=== PATIENT | male | born 1970 | race Caucasian/White ===

== ENCOUNTER 2017-07-03 11:10 | Emergency (ER) | payer OTHER ==
[~2017-07-03] VITALS: Ht 172.7 cm; Wt 62.7 kg
[~2017-07-03 11:10] MED LIST: CLON.1 PO; PALI234D IM
[2017-07-03 11:38] LABS: BASOPHILS # (AUTO) 0.04 K/uL (0.00-0.20); BASOPHILS % (AUTO) 0.7 % (0.0-2.0); EOSINOPHILS # (AUTO) 0.16 K/uL (0.00-0.70); EOSINOPHILS % (AUTO) 2.66 % (1.0-6.0); HEMATOCRIT 36.9 % (41-53); HEMOGLOBIN 12.1 g/dL (13.5-17.5); LYMPHOCYTES # (AUTO) 1.9 K/uL (1.0-4.8); LYMPHOCYTES % (AUTO) 32.1 % (22.0-44.0); MEAN CORPUSCULAR HGB CONC 32.7 G/dL (31.0-37.0); MEAN CORPUSCULAR VOLUME 86 fL (80-100); MONOCYTES # (AUTO) 0.4 K/uL (0.1-1.0); MONOCYTES % (AUTO) 6.6 % (2.0-9.0); NEUTROPHILS # (AUTO) 3.4 K/uL (1.8-7.7); PLATELET COUNT (AUTO) 311 K/uL (150-450); RED BLOOD CELL COUNT(AUTO) 4.31 MIL/uL (4.50-5.90); RED CELL DISTRIBUTION WIDTH 16.3 % (11.5-14.5); WHITE BLOOD COUNT (AUTO) 5.8 K/uL (4.5-11.0)
[2017-07-03 12:10] LABS: ANION GAP 10 mmol/L (8-16); CALCIUM, TOTAL 8.7 mg/dL (8.8-10.5); CARBON DIOXIDE 27 mmol/L (22-29); CHLORIDE 102 mmol/L (98-107); CREATININE 1.12 mg/dL (0.60-1.30); GLOMERULAR FILTR. RATE CALC > 60 mL/min (>60); POTASSIUM 4.1 mmol/L (3.5-5.1); SODIUM SERUM 139 mmol/L (136-145); UREA NITROGEN, BLOOD 10 mg/dL (7-18)
[2017-07-03 12:15] LABS: ALANINE AMINOTRANSFERASE 20 U/L (12-78); ALBUMIN 3.4 g/dL (3.4-5.0); ASPARTATE AMINOTRANSFERASE 16 U/L (15-37); BILIRUBIN,TOTAL 0.4 mg/dL (0.1-1.0); TOTAL PROTEIN, SERUM 7.6 g/dL (6.4-8.2)
[2017-07-03 13:32] VITALS: BP 133/87
== END 2017-07-03 15:20 | disposition home or self-care (01) ==
LOC: EMS 11:12 → EEVIPCON 11:12 → EMS 15:20
DX: Z00.8 Encounter for other general examination (principal); F15.10 Other stimulant abuse, uncomplicated; J45.909 Unspecified asthma, uncomplicated; I10 Essential (primary) hypertension; F20.9 Schizophrenia, unspecified; F17.210 Nicotine dependence, cigarettes, uncomplicated
CPT/HCPCS: 36415; 80053; 80307; 85025; 99285; G0480

== ENCOUNTER 2017-10-18 11:14 | Inpatient (IN) | payer OTHER, MEDICAID ==
[~2017-10-18] VITALS: Ht 162.6 cm; Wt 59.3 kg
[~2017-10-18 11:14] MED LIST changes: +CLON-570 PO; -CLON.1 PO
[2017-10-18 11:21] VITALS: BP 125/93
[2017-10-18] MEDS ORDERED: ZOLPIDEM TARTRATE 10 MG TABLET PO PRN (11:30)
[2017-10-18] MEDS ORDERED: LORazepam 2 MG TABLET PO PRN (11:30)
[2017-10-18] MEDS ORDERED: HALOPERIDOL 5 MG TABLET PO PRN (11:30)
[2017-10-18 12:08] VITALS: BP 133/86
[2017-10-18] MEDS ORDERED: INFLUENZA VIRUS VACCINE QVS 2017-18 (3YR+)/PF 60 MCG/0.5 ML SYRINGE IM ONE (12:45)
[2017-10-18] MEDS ORDERED: -PHARMACY VACCINE NOTE- MISC ONE (12:45)
[2017-10-18] MEDS ORDERED: CloNIDine HCL 0.1 MG TABLET PO SCH (17:00)
[2017-10-18 17:35] VITALS: BP 128/80
[2017-10-18] MEDS: BACITRACIN 28.4 GM OINTMENT TP SCH (17:39)
[2017-10-18] MEDS: CloNIDine HCL 0.1 MG TABLET PO SCH (17:39)
[2017-10-19 00:57] VITALS: BP 133/80
[2017-10-19 08:42] VITALS: BP 130/77
[2017-10-19] MEDS: BACITRACIN 28.4 GM OINTMENT TP SCH ×2 (09:00→16:59)
[2017-10-19] MEDS: CloNIDine HCL 0.1 MG TABLET PO SCH ×2 (09:00→16:59)
[2017-10-19 15:59] VITALS: BP 144/56
[2017-10-19 16:55] VITALS: BP 142/68
[2017-10-20 09:00] VITALS: BP 128/88
[2017-10-20] MEDS: CloNIDine HCL 0.1 MG TABLET PO SCH ×2 (09:11→16:53)
[2017-10-20] MEDS: BACITRACIN 28.4 GM OINTMENT TP SCH ×2 (09:11→16:53)
[2017-10-20] MEDS ORDERED: PALIPERIDONE PALMITATE 234 MG/1.5 ML SYRINGE IM SCH (16:00)
[2017-10-20 16:04] VITALS: BP 138/74
[2017-10-21 08:48] VITALS: BP 130/85
[2017-10-21] MEDS: BACITRACIN 28.4 GM OINTMENT TP SCH ×2 (10:25→16:12)
[2017-10-21] MEDS: CloNIDine HCL 0.1 MG TABLET PO SCH ×2 (10:25→16:11)
[2017-10-21 16:12] VITALS: BP 120/71
[2017-10-21] MEDS ORDERED: MAGNESIUM HYDROXIDE SUSPENSION 30 ML UDCUP PO PRN (19:00)
[2017-10-22 00:43] VITALS: BP 138/90
[2017-10-22 08:11] LABS: BASOPHILS % (AUTO) 0.9 % (0.0-2.0); EOSINOPHILS % (AUTO) 2.1 % (1.0-6.0); HEMATOCRIT 36.9 % (41-53); HEMOGLOBIN 12.4 g/dL (13.5-17.5); LYMPHOCYTES # (AUTO) 1.6 K/uL (1.0-4.8); MEAN CORPUSCULAR HEMOGLOBIN 28.8 pg (26.0-34.0); MEAN CORPUSCULAR HGB CONC 33.6 G/dL (31.0-37.0); MEAN CORPUSCULAR VOLUME 86 fL (80-100); MONOCYTES # (AUTO) 0.4 K/uL (0.1-1.0); NEUTROPHILS # (AUTO) 2.5 K/uL (1.8-7.7); PLATELET COUNT (AUTO) 321 K/uL (150-450); RED CELL DISTRIBUTION WIDTH 14.8 % (11.5-14.5)
[2017-10-22] MEDS: CloNIDine HCL 0.1 MG TABLET PO SCH ×2 (08:14→16:38)
[2017-10-22] MEDS: BACITRACIN 28.4 GM OINTMENT TP SCH ×2 (08:14→16:38)
[2017-10-22 08:22] LABS: HEMOGLOBIN A1C 5.4 % (4.5-6.2)
[2017-10-22 08:32] VITALS: BP 139/79
[2017-10-22 08:39] LABS: ALANINE AMINOTRANSFERASE 16 U/L (12-78); ALBUMIN 2.9 g/dL (3.4-5.0); ALKALINE PHOSPHATASE 62 U/L (46-116); ANION GAP 3 mmol/L (8-16); ASPARTATE AMINOTRANSFERASE 8 U/L (15-37); BILIRUBIN,TOTAL 0.2 mg/dL (0.1-1.0); CALCIUM, TOTAL 8.1 mg/dL (8.8-10.5); CARBON DIOXIDE 29 mmol/L (22-29); CHLORIDE 103 mmol/L (98-107); CHOL/HDL RATIO 2.5 (4.2-7.3); CHOLESTEROL 124 mg/dL (131-200); CREATININE 1.01 mg/dL (0.60-1.30); FREE T4 (FREE THYROXINE) 0.83 ng/dL (0.76-1.46); GLOMERULAR FILTR. RATE CALC > 60 mL/min (>60); GLUCOSE,RANDOM 89 mg/dL (70-110); HDL CHOLESTEROL 50 mg/dL (40-60); LDL CHOL (CALC.) 67 mg/dL (0-130); POTASSIUM 4.5 mmol/L (3.5-5.1); SODIUM SERUM 135 mmol/L (136-145); THYROID STIMULATING HORMONE 2.99 uIU/mL (0.36-3.74); TOTAL PROTEIN, SERUM 6.7 g/dL (6.4-8.2); TRIGLYCERIDES 37 mg/dL (15-150); UREA NITROGEN, BLOOD 17 mg/dL (7-18)
[2017-10-22 16:19] VITALS: BP 137/77
[2017-10-23 01:28] VITALS: BP 138/82
[2017-10-23 08:28] VITALS: BP 122/74
[2017-10-23] MEDS: BACITRACIN 28.4 GM OINTMENT TP SCH ×2 (08:46→16:40)
[2017-10-23] MEDS: CloNIDine HCL 0.1 MG TABLET PO SCH ×2 (08:46→16:40)
[2017-10-23 08:57] LABS: ALANINE AMINOTRANSFERASE 15 U/L (12-78); ALKALINE PHOSPHATASE 68 U/L (46-116); ANION GAP 6 mmol/L (8-16); ASPARTATE AMINOTRANSFERASE 8 U/L (15-37); BILIRUBIN,TOTAL 0.3 mg/dL (0.1-1.0); CARBON DIOXIDE 25 mmol/L (22-29); CHLORIDE 104 mmol/L (98-107); CREATININE 0.82 mg/dL (0.60-1.30); GLOMERULAR FILTR. RATE CALC > 60 mL/min (>60); GLUCOSE,RANDOM 85 mg/dL (70-110); POTASSIUM 4.7 mmol/L (3.5-5.1); SODIUM SERUM 135 mmol/L (136-145); TOTAL PROTEIN, SERUM 6.9 g/dL (6.4-8.2); UREA NITROGEN, BLOOD 14 mg/dL (7-18)
[2017-10-23 16:21] VITALS: BP 131/85
[2017-10-24] MEDS: CloNIDine HCL 0.1 MG TABLET PO SCH ×2 (08:15→16:18)
[2017-10-24] MEDS: BACITRACIN 28.4 GM OINTMENT TP SCH ×2 (08:16→16:18)
[2017-10-24 08:36] VITALS: BP 119/62
[2017-10-24 16:39] VITALS: BP 139/96
[2017-10-24 17:30] VITALS: BP 126/86
[2017-10-25 05:44] VITALS: BP 137/82
[2017-10-25] MEDS: CloNIDine HCL 0.1 MG TABLET PO SCH ×2 (08:20→16:36)
[2017-10-25] MEDS: BACITRACIN 28.4 GM OINTMENT TP SCH ×2 (08:20→16:36)
[2017-10-25 08:36] VITALS: BP 148/86
[2017-10-25 13:47] VITALS: BP 122/80
[2017-10-25 16:09] VITALS: BP 110/64
[2017-10-26 05:48] VITALS: BP 126/75
[2017-10-26 08:25] VITALS: BP 120/78
[2017-10-26] MEDS: CloNIDine HCL 0.1 MG TABLET PO SCH ×2 (08:26→16:13)
[2017-10-26] MEDS: BACITRACIN 28.4 GM OINTMENT TP SCH ×2 (08:26→16:13)
[2017-10-26 09:26] VITALS: BP 120/78
[2017-10-26 16:08] VITALS: BP 116/72
[2017-10-27 00:58] VITALS: BP 122/70
[2017-10-27] MEDS: CloNIDine HCL 0.1 MG TABLET PO SCH ×2 (08:12→16:30)
[2017-10-27] MEDS: BACITRACIN 28.4 GM OINTMENT TP SCH ×2 (08:12→16:30)
[2017-10-27 08:13] VITALS: BP_SYST 120
[2017-10-27 16:32] VITALS: BP 130/85
[2017-10-28 00:50] VITALS: BP 124/85
[2017-10-28] MEDS: BACITRACIN 28.4 GM OINTMENT TP SCH (08:09)
[2017-10-28] MEDS: CloNIDine HCL 0.1 MG TABLET PO SCH ×2 (08:09→16:15)
[2017-10-28 08:37] VITALS: BP 135/90
[2017-10-28 16:18] VITALS: BP 141/74
[2017-10-29 04:14] VITALS: BP 123/99
[2017-10-29] MEDS: CloNIDine HCL 0.1 MG TABLET PO SCH ×2 (08:28→16:34)
[2017-10-29 09:04] VITALS: BP 133/87
[2017-10-29 16:15] VITALS: BP 140/89
[2017-10-30 01:08] VITALS: BP 120/85
[2017-10-30 08:12] VITALS: BP 128/82
[2017-10-30] MEDS: CloNIDine HCL 0.1 MG TABLET PO SCH ×2 (08:35→16:36)
[2017-10-30 16:26] VITALS: BP 131/99
[2017-10-31 02:05] VITALS: BP 133/77
[2017-10-31] MEDS: CloNIDine HCL 0.1 MG TABLET PO SCH ×2 (08:21→16:07)
[2017-10-31 08:44] VITALS: BP 130/76
[2017-10-31 16:18] VITALS: BP 124/83
[2017-11-01 04:32] VITALS: BP 125/84
[2017-11-01] MEDS: CloNIDine HCL 0.1 MG TABLET PO SCH ×2 (08:21→16:42)
[2017-11-01 08:28] VITALS: BP 122/86
[2017-11-01 17:25] VITALS: BP 124/98
[2017-11-02 00:39] VITALS: BP 128/62
[2017-11-02] MEDS: CloNIDine HCL 0.1 MG TABLET PO SCH (08:19)
[2017-11-02 08:38] VITALS: BP 121/86
== END 2017-11-02 09:15 | disposition home or self-care (01) | DRG 885 ==
LOC: B2X 11:25
PROVIDERS: ADMIT Psychiatry & Neurology Psychiatry; ATTEND Psychiatry & Neurology Psychiatry
DX: F20.0 Paranoid schizophrenia (principal); Z91.19 Patient's noncompliance with other medical treatment and regimen; I10 Essential (primary) hypertension
CPT/HCPCS: 83036; 84439; 84443

== ENCOUNTER 2018-05-22 15:21 | Emergency (ER) | payer MEDICAID, MEDICARE, OTHER ==
[~2018-05-22] VITALS: Ht 154.9 cm; Wt 45.5 kg
[2018-05-22] MEDS ORDERED: LABETALOL HCL 5 MG/ML 20 ML VIAL IVP ONE (17:30)
[2018-05-22] MEDS ORDERED: MAGNESIUM SULFATE 2 GM, MVI, ADULT NO.1 WITH VIT K 10 ML, THIAMINE HCL 100 MG, FOLIC AC... IV ONE ×5 (17:30)
[2018-05-22 17:33] LABS: BASOPHILS % (AUTO) 1.1 % (0.0-2.0); HEMATOCRIT 38.5 % (41-53); HEMOGLOBIN 12.7 g/dL (13.5-17.5); LYMPHOCYTES # (AUTO) 1.8 K/uL (1.0-4.8); LYMPHOCYTES % (AUTO) 27.5 % (22.0-44.0); MEAN CORPUSCULAR HEMOGLOBIN 27.1 pg (26.0-34.0); MEAN CORPUSCULAR HGB CONC 33.1 G/dL (31.0-37.0); MEAN CORPUSCULAR VOLUME 82 fL (80-100); MONOCYTES # (AUTO) 0.5 K/uL (0.1-1.0); NEUTROPHILS # (AUTO) 4.1 K/uL (1.8-7.7); NEUTROPHILS % (AUTO) 61.4 % (40.0-70.0); PLATELET COUNT (AUTO) 412 K/uL (150-450); RED BLOOD CELL COUNT(AUTO) 4.69 MIL/uL (4.50-5.90); RED CELL DISTRIBUTION WIDTH 14.7 % (11.5-14.5)
[2018-05-22 17:42] LABS: ANION GAP 5 mmol/L (8-16); CALCIUM, TOTAL 8.5 mg/dL (8.8-10.5); CARBON DIOXIDE 29 mmol/L (22-29); CHLORIDE 100 mmol/L (98-107); CREATININE 0.81 mg/dL (0.60-1.30); GLOMERULAR FILTR. RATE CALC > 60 mL/min (>60); GLUCOSE,RANDOM 121 mg/dL (70-110); POTASSIUM 3.4 mmol/L (3.5-5.1); SODIUM SERUM 134 mmol/L (136-145); UREA NITROGEN, BLOOD 7 mg/dL (7-18)
[2018-05-22 17:47] LABS: ALANINE AMINOTRANSFERASE 16 U/L (12-78); ALBUMIN 3.4 g/dL (3.4-5.0); ALKALINE PHOSPHATASE 92 U/L (46-116); ASPARTATE AMINOTRANSFERASE 11 U/L (15-37); BILIRUBIN,TOTAL 0.3 mg/dL (0.1-1.0); TOTAL PROTEIN, SERUM 7.8 g/dL (6.4-8.2)
[2018-05-22] MEDS ORDERED: LORazepam 2 MG/ML VIAL IVP ONE (18:30)
[2018-05-22] MEDS ORDERED: CloNIDine HCL 0.1 MG TABLET PO ONE (19:45)
[2018-05-22] MEDS ORDERED: POTASSIUM CHLORIDE 20 MEQ ER TABLET PO ONE (19:45)
[2018-05-22 20:32] LABS: AMPHET/METH SCREEN,URINE POSITIVE (NEGATIVE); BARBITURATE SCREEN, URINE NEGATIVE (NEGATIVE); BENZODIAZEPINES SCREEN,URINE NEGATIVE (NEGATIVE); CANNABINOID SCREEN,URINE NEGATIVE (NEGATIVE); COCAINE SCREEN,URINE NEGATIVE (NEGATIVE); METHADONE SCREEN, URINE NEGATIVE (NEGATIVE); OPIATE SCREEN,URINE NEGATIVE (NEGATIVE)
[2018-05-22 20:33] LABS: PHENCYCLIDINE SCREEN,URINE NEGATIVE (NEGATIVE)
[2018-05-22 21:37] VITALS: BP 147/101
== END 2018-05-22 21:44 | disposition home or self-care (01) ==
LOC: EMS 15:23
DX: F10.239 Alcohol dependence with withdrawal, unspecified (principal); E86.0 Dehydration; R00.0 Tachycardia, unspecified; M79.661 Pain in right lower leg; J45.909 Unspecified asthma, uncomplicated; I10 Essential (primary) hypertension; F17.210 Nicotine dependence, cigarettes, uncomplicated; F19.90 Other psychoactive substance use, unspecified, uncomplicated; Z91.19 Patient's noncompliance with other medical treatment and regimen; Y90.0 Blood alcohol level of less than 20 mg/100 ml
CPT/HCPCS: 36415; 80053; 80307; 85025; 93005; 96365; 96375; 99285; G0480; J2060; J3411; J3475; J3490 ×3; J7030

== ENCOUNTER 2018-05-23 11:02 | Emergency (ER) | payer MEDICARE ==
[~2018-05-23] VITALS: Ht 167.6 cm; Wt 68.2 kg
[2018-05-23 13:36] VITALS: BP 137/92
== END 2018-05-23 14:30 | disposition home or self-care (01) ==
LOC: EMS 11:04
DX: F20.9 Schizophrenia, unspecified (principal); J45.909 Unspecified asthma, uncomplicated; I10 Essential (primary) hypertension; F17.210 Nicotine dependence, cigarettes, uncomplicated; F19.90 Other psychoactive substance use, unspecified, uncomplicated; Z59.0 Homelessness
CPT/HCPCS: 99283; 99284

== ENCOUNTER 2018-06-14 09:42 | Inpatient (IN) | payer MEDICARE, MEDICAID ==
[~2018-06-14] VITALS: Ht 160 cm; Wt 56.6 kg
[2018-06-14 11:50] LABS: BASOPHILS % (AUTO) 1.5 % (0.0-2.0); EOSINOPHILS % (AUTO) 3.1 % (1.0-6.0); HEMATOCRIT 39.5 % (41-53); HEMOGLOBIN 12.9 g/dL (13.5-17.5); LYMPHOCYTES # (AUTO) 1.7 K/uL (1.0-4.8); LYMPHOCYTES % (AUTO) 35.3 % (22.0-44.0); MEAN CORPUSCULAR HEMOGLOBIN 26.5 pg (26.0-34.0); MEAN CORPUSCULAR HGB CONC 32.7 G/dL (31.0-37.0); MEAN CORPUSCULAR VOLUME 81 fL (80-100); MONOCYTES # (AUTO) 0.6 K/uL (0.1-1.0); MONOCYTES % (AUTO) 11.5 % (2.0-9.0); NEUTROPHILS # (AUTO) 2.4 K/uL (1.8-7.7); NEUTROPHILS % (AUTO) 48.6 % (40.0-70.0); PLATELET COUNT (AUTO) 453 K/uL (150-450); RED BLOOD CELL COUNT(AUTO) 4.86 MIL/uL (4.50-5.90); RED CELL DISTRIBUTION WIDTH 15.5 % (11.5-14.5)
[2018-06-14 12:09] LABS: ANION GAP 10 mmol/L (8-16); CARBON DIOXIDE 25 mmol/L (22-29); CHLORIDE 102 mmol/L (98-107); CREATININE 1.02 mg/dL (0.60-1.30); GLOMERULAR FILTR. RATE CALC > 60 mL/min (>60); GLUCOSE,RANDOM 109 mg/dL (70-110); POTASSIUM 3.6 mmol/L (3.5-5.1); SODIUM SERUM 137 mmol/L (136-145); UREA NITROGEN, BLOOD 8 mg/dL (7-18)
[2018-06-14 12:13] LABS: ALANINE AMINOTRANSFERASE 24 U/L (12-78); ALBUMIN 3.4 g/dL (3.4-5.0); ALKALINE PHOSPHATASE 90 U/L (46-116); ASPARTATE AMINOTRANSFERASE 17 U/L (15-37); BILIRUBIN,TOTAL 0.4 mg/dL (0.1-1.0)
[2018-06-14 12:42] LABS: AMPHET/METH SCREEN,URINE POSITIVE (NEGATIVE); BARBITURATE SCREEN, URINE NEGATIVE (NEGATIVE); BENZODIAZEPINES SCREEN,URINE NEGATIVE (NEGATIVE); CANNABINOID SCREEN,URINE NEGATIVE (NEGATIVE); COCAINE SCREEN,URINE NEGATIVE (NEGATIVE); METHADONE SCREEN, URINE NEGATIVE (NEGATIVE); OPIATE SCREEN,URINE NEGATIVE (NEGATIVE)
[2018-06-14 12:43] LABS: PHENCYCLIDINE SCREEN,URINE NEGATIVE (NEGATIVE)
[2018-06-14] MEDS ORDERED: PERMETHRIN 1% 60 ML LOTION TP ONE (15:15)
[2018-06-14] MEDS ORDERED: LORazepam 2 MG TABLET PO PRN (16:00)
[2018-06-14] MEDS ORDERED: HALOPERIDOL 5 MG TABLET PO PRN (16:00)
[2018-06-14 17:30] VITALS: BP 145/105
[2018-06-14] MEDS ORDERED: GuaiFENesin/D-METHORPHAN [SUGAR-FREE] 200-20MG/10 ML SYRUP UDCUP PO PRN (19:15)
[2018-06-14] MEDS ORDERED: LOPERAMIDE HCL 2 MG CAPSULE PO PRN (19:15)
[2018-06-14] MEDS ORDERED: IBUPROFEN 400 MG TABLET PO PRN (19:15)
[2018-06-14] MEDS ORDERED: DOCUSATE SODIUM 100 MG CAPSULE PO PRN (19:15)
[2018-06-14] MEDS ORDERED: ALBUTEROL SULFATE HFA 90 MCG/PUFF 8 GM INHALER IH PRN (19:15)
[2018-06-14] MEDS ORDERED: CloNIDine HCL 0.1 MG TABLET PO PRN (19:15)
[2018-06-14] MEDS ORDERED: PETROLATUM,WHITE 71 GM JELLY TP PRN (19:15)
[2018-06-14] MEDS ORDERED: MAGNESIUM HYDROXIDE SUSPENSION 30 ML UDCUP PO PRN (19:15)
[2018-06-14] MEDS ORDERED: NICOTINE 14 MG/24 HOUR PATCH TD PRN (19:15)
[2018-06-14] MEDS ORDERED: ACETAMINOPHEN 325 MG TABLET PO PRN (19:15)
[2018-06-14] MEDS ORDERED: MAG HYDROX/AL HYDROX/SIMETH ES 30 ML SUSPENSION UDCUP PO PRN (19:15)
[2018-06-14] MEDS ORDERED: ONDANSETRON HCL 4 MG TABLET PO PRN (19:15)
[2018-06-15 06:38] LABS: HEMATOCRIT 38.8 % (41-53); HEMOGLOBIN 12.8 g/dL (13.5-17.5); LYMPHOCYTES # (AUTO) 2.3 K/uL (1.0-4.8); LYMPHOCYTES % (AUTO) 33.4 % (22.0-44.0); MEAN CORPUSCULAR HEMOGLOBIN 26.7 pg (26.0-34.0); MEAN CORPUSCULAR HGB CONC 32.9 G/dL (31.0-37.0); MEAN CORPUSCULAR VOLUME 81 fL (80-100); MONOCYTES # (AUTO) 0.7 K/uL (0.1-1.0); MONOCYTES % (AUTO) 9.8 % (2.0-9.0); NEUTROPHILS # (AUTO) 3.6 K/uL (1.8-7.7); NEUTROPHILS % (AUTO) 53.8 % (40.0-70.0); PLATELET COUNT (AUTO) 431 K/uL (150-450); RED BLOOD CELL COUNT(AUTO) 4.78 MIL/uL (4.50-5.90); RED CELL DISTRIBUTION WIDTH 15.4 % (11.5-14.5)
[2018-06-15 07:14] LABS: ALANINE AMINOTRANSFERASE 19 U/L (12-78); ALBUMIN 3.4 g/dL (3.4-5.0); ALKALINE PHOSPHATASE 83 U/L (46-116); ANION GAP 9 mmol/L (8-16); ASPARTATE AMINOTRANSFERASE 14 U/L (15-37); BILIRUBIN,TOTAL 0.4 mg/dL (0.1-1.0); CALCIUM, TOTAL 8.6 mg/dL (8.8-10.5); CARBON DIOXIDE 28 mmol/L (22-29); CHLORIDE 103 mmol/L (98-107); CHOL/HDL RATIO 2.4 (4.2-7.3); CHOLESTEROL 139 mg/dL (131-200); CREATININE 0.92 mg/dL (0.60-1.30); GLOMERULAR FILTR. RATE CALC > 60 mL/min (>60); GLUCOSE,RANDOM 77 mg/dL (70-110); HDL CHOLESTEROL 58 mg/dL (40-60); HEMOGLOBIN A1C 5.7 % (4.5-6.2); LDL CHOL (CALC.) 72 mg/dL (0-130); POTASSIUM 4.5 mmol/L (3.5-5.1); SODIUM SERUM 140 mmol/L (136-145); THYROID STIMULATING HORMONE 1.27 uIU/mL (0.36-3.74); TOTAL PROTEIN, SERUM 7.4 g/dL (6.4-8.2); TRIGLYCERIDES 43 mg/dL (15-150); UREA NITROGEN, BLOOD 13 mg/dL (7-18)
[2018-06-15 08:00] VITALS: BP 128/74
[2018-06-15] MEDS: CloNIDine HCL 0.1 MG TABLET PO SCH ×2 (08:30→16:55)
[2018-06-15 17:00] VITALS: BP 141/89
[2018-06-15] MEDS: PALIPERIDONE 6 MG ER TABLET PO SCH (20:13)
[2018-06-16] MEDS: CloNIDine HCL 0.1 MG TABLET PO SCH ×2 (08:47→16:55)
[2018-06-16 09:36] VITALS: BP 111/83
[2018-06-16 16:40] VITALS: BP 140/85
[2018-06-16] MEDS: PALIPERIDONE 6 MG ER TABLET PO SCH (19:58)
[2018-06-17] MEDS: CloNIDine HCL 0.1 MG TABLET PO SCH ×2 (08:37→16:36)
[2018-06-17 09:18] VITALS: BP 129/96
[2018-06-17 16:17] VITALS: BP 117/81
[2018-06-17] MEDS: PALIPERIDONE 3 MG ER TABLET PO SCH (20:32)
[2018-06-18 00:46] VITALS: BP 128/104
[2018-06-18 08:30] VITALS: BP 137/92
[2018-06-18] MEDS: CloNIDine HCL 0.1 MG TABLET PO SCH ×2 (08:55→16:17)
[2018-06-18 16:44] VITALS: BP 122/96
[2018-06-18] MEDS: PALIPERIDONE 3 MG ER TABLET PO SCH (20:01)
[2018-06-19 04:59] VITALS: BP 146/91
[2018-06-19] MEDS: CloNIDine HCL 0.1 MG TABLET PO SCH ×2 (08:34→16:30)
[2018-06-19 08:55] VITALS: BP 145/103
[2018-06-19 17:00] VITALS: BP 159/88
[2018-06-19] MEDS: PALIPERIDONE 3 MG ER TABLET PO SCH (20:42)
[2018-06-20 08:00] VITALS: BP 156/90
[2018-06-20] MEDS: PALIPERIDONE PALMITATE 234 MG/1.5 ML SYRINGE IM SCH ×2 (09:00→18:08)
[2018-06-20] MEDS: CloNIDine HCL 0.1 MG TABLET PO SCH ×2 (09:13→17:05)
[2018-06-20 16:55] VITALS: BP 144/95
[2018-06-20] MEDS: PALIPERIDONE 3 MG ER TABLET PO SCH (21:26)
[2018-06-21 00:26] VITALS: BP 158/88
[2018-06-21] MEDS: ZOLPIDEM TARTRATE 10 MG TABLET PO PRN (00:43)
[2018-06-21 08:08] VITALS: BP 156/104
[2018-06-21] MEDS: CloNIDine HCL 0.1 MG TABLET PO SCH ×2 (08:22→16:11)
[2018-06-21 09:15] VITALS: BP 142/98
[2018-06-21 16:01] VITALS: BP 138/100
[2018-06-21] MEDS: AmLODIPine BESYLATE 5 MG TABLET PO SCH (16:11)
[2018-06-21] MEDS: PALIPERIDONE 3 MG ER TABLET PO SCH (20:42)
[2018-06-22 01:43] VITALS: BP 136/89
[2018-06-22 08:12] VITALS: BP 157/111
[2018-06-22] MEDS: AmLODIPine BESYLATE 5 MG TABLET PO SCH (08:20)
[2018-06-22] MEDS: CloNIDine HCL 0.1 MG TABLET PO SCH ×2 (08:20→15:53)
[2018-06-22 16:04] VITALS: BP 134/91
[2018-06-22] MEDS: PALIPERIDONE 3 MG ER TABLET PO SCH (21:12)
[2018-06-23 00:05] VITALS: BP 140/102
[2018-06-23] MEDS: ZOLPIDEM TARTRATE 10 MG TABLET PO PRN (00:08)
[2018-06-23] MEDS: AmLODIPine BESYLATE 5 MG TABLET PO SCH (08:29)
[2018-06-23] MEDS: CloNIDine HCL 0.1 MG TABLET PO SCH (08:30)
[2018-06-23 08:58] VITALS: BP 121/64
[2018-06-23] MEDS ORDERED: PALI6 PO (10:11)
[2018-06-23] MEDS ORDERED: CLON-570 PO (10:11)
[2018-06-23] MEDS ORDERED: AMLO-511 PO (10:11)
[2018-06-23] MEDS ORDERED: PALI234D IM (10:12)
== END 2018-06-23 12:00 | disposition home or self-care (01) | DRG 885 ==
LOC: EMS 09:44 → 3EX 18:10
PROVIDERS: ADMIT Psychiatry & Neurology Psychiatry; ATTEND Psychiatry & Neurology Psychiatry
DX: F20.0 Paranoid schizophrenia (principal); F19.20 Other psychoactive substance dependence, uncomplicated; D64.9 Anemia, unspecified; I10 Essential (primary) hypertension; J45.909 Unspecified asthma, uncomplicated; F15.10 Other stimulant abuse, uncomplicated; F17.210 Nicotine dependence, cigarettes, uncomplicated; Z59.0 Homelessness; Z81.8 Family history of other mental and behavioral disorders; Z91.19 Patient's noncompliance with other medical treatment and regimen; Z71.51 Drug abuse counseling and surveillance of drug abuser; Z71.6 Tobacco abuse counseling
CPT/HCPCS: 83036; 84443; 99285; G0480

== ENCOUNTER 2018-10-16 09:06 | Inpatient (IN) | payer MEDICARE, MEDICAID ==
[~2018-10-16] VITALS: Ht 154.9 cm; Wt 58.5 kg
[~2018-10-16 09:06] MED LIST changes: +AMLO-511 PO; +PALI6 PO
[2018-10-16 10:03] LABS: BASOPHILS % (AUTO) 0.8 % (0.0-2.0); EOSINOPHILS % (AUTO) 0.5 % (1.0-6.0); HEMATOCRIT 37.4 % (41-53); HEMOGLOBIN 12.4 g/dL (13.5-17.5); LYMPHOCYTES # (AUTO) 1.9 K/uL (1.0-4.8); LYMPHOCYTES % (AUTO) 21.6 % (22.0-44.0); MEAN CORPUSCULAR HEMOGLOBIN 26.6 pg (26.0-34.0); MEAN CORPUSCULAR HGB CONC 33.3 G/dL (31.0-37.0); MEAN CORPUSCULAR VOLUME 80 fL (80-100); MONOCYTES # (AUTO) 0.7 K/uL (0.1-1.0); MONOCYTES % (AUTO) 7.5 % (2.0-9.0); NEUTROPHILS % (AUTO) 69.6 % (40.0-70.0); PLATELET COUNT (AUTO) 421 K/uL (150-450); RED BLOOD CELL COUNT(AUTO) 4.67 MIL/uL (4.50-5.90); RED CELL DISTRIBUTION WIDTH 16.8 % (11.5-14.5)
[2018-10-16 10:16] LABS: ANION GAP 6 mmol/L (8-16); CALCIUM, TOTAL 9.1 mg/dL (8.8-10.5); CARBON DIOXIDE 30 mmol/L (22-29); CHLORIDE 99 mmol/L (98-107); CREATININE 1.09 mg/dL (0.60-1.30); GLOMERULAR FILTR. RATE CALC > 60 mL/min (>60); GLUCOSE,RANDOM 86 mg/dL (70-110); POTASSIUM 4.3 mmol/L (3.5-5.1); SODIUM SERUM 135 mmol/L (136-145); UREA NITROGEN, BLOOD 18 mg/dL (7-18)
[2018-10-16 10:21] LABS: ALANINE AMINOTRANSFERASE 25 U/L (12-78); ALBUMIN 3.5 g/dL (3.4-5.0); ALKALINE PHOSPHATASE 86 U/L (46-116); ASPARTATE AMINOTRANSFERASE 13 U/L (15-37); BILIRUBIN,TOTAL 0.3 mg/dL (0.1-1.0); TOTAL PROTEIN, SERUM 8.2 g/dL (6.4-8.2)
[2018-10-16] MEDS ORDERED: HALOPERIDOL 5 MG TABLET PO PRN (10:45)
[2018-10-16] MEDS ORDERED: ZOLPIDEM TARTRATE 10 MG TABLET PO PRN (10:45)
[2018-10-16 17:17] VITALS: BP 114/91
[2018-10-16 17:23] LABS: AMPHET/METH SCREEN,URINE POSITIVE (NEGATIVE); BARBITURATE SCREEN, URINE NEGATIVE (NEGATIVE); BENZODIAZEPINES SCREEN,URINE NEGATIVE (NEGATIVE); CANNABINOID SCREEN,URINE NEGATIVE (NEGATIVE); COCAINE SCREEN,URINE NEGATIVE (NEGATIVE); METHADONE SCREEN, URINE NEGATIVE (NEGATIVE); OPIATE SCREEN,URINE NEGATIVE (NEGATIVE)
[2018-10-16 17:30] LABS: PHENCYCLIDINE SCREEN,URINE NEGATIVE (NEGATIVE)
[2018-10-17 00:39] VITALS: BP 152/115
[2018-10-17 01:09] VITALS: BP 156/91
[2018-10-17] MEDS: LORazepam 2 MG TABLET PO PRN (01:11)
[2018-10-17] MEDS ORDERED: CloNIDine HCL 0.1 MG TABLET PO PRN (05:30)
[2018-10-17] MEDS: AmLODIPine BESYLATE 5 MG TABLET PO SCH (08:16)
[2018-10-17 09:41] VITALS: BP 154/107
[2018-10-17 10:45] VITALS: BP 144/89
[2018-10-17 16:38] VITALS: BP 152/99
[2018-10-17] MEDS: PALIPERIDONE 3 MG ER TABLET PO SCH (20:26)
[2018-10-18] MEDS: AmLODIPine BESYLATE 5 MG TABLET PO SCH (08:45)
[2018-10-18 10:12] VITALS: BP 143/104
[2018-10-18 17:26] VITALS: BP 150/98
[2018-10-18] MEDS: PALIPERIDONE 3 MG ER TABLET PO SCH (19:59)
[2018-10-19] MEDS: AmLODIPine BESYLATE 5 MG TABLET PO SCH (08:27)
[2018-10-19 09:55] VITALS: BP 143/112
[2018-10-19] MEDS: PALIPERIDONE 3 MG ER TABLET PO SCH (20:25)
[2018-10-19 21:10] VITALS: BP 127/82
[2018-10-20 07:04] LABS: HEMOGLOBIN A1C 5.7 % (4.5-6.2)
[2018-10-20 07:31] LABS: ALANINE AMINOTRANSFERASE 16 U/L (12-78); ALBUMIN 3.1 g/dL (3.4-5.0); ALKALINE PHOSPHATASE 60 U/L (46-116); ANION GAP 4 mmol/L (8-16); ASPARTATE AMINOTRANSFERASE 12 U/L (15-37); BILIRUBIN,TOTAL 0.3 mg/dL (0.1-1.0); CALCIUM, TOTAL 8.3 mg/dL (8.8-10.5); CARBON DIOXIDE 31 mmol/L (22-29); CHLORIDE 102 mmol/L (98-107); CREATINE KINASE, TOTAL ONLY 46 U/L (39-308); FREE T4 (FREE THYROXINE) 0.83 ng/dL (0.76-1.46); GLOMERULAR FILTR. RATE CALC > 60 mL/min (>60); GLUCOSE,RANDOM 91 mg/dL (70-110); POTASSIUM 4.5 mmol/L (3.5-5.1); SODIUM SERUM 137 mmol/L (136-145); THYROID STIMULATING HORMONE 2.85 uIU/mL (0.36-3.74); TOTAL PROTEIN, SERUM 7.1 g/dL (6.4-8.2); UREA NITROGEN, BLOOD 19 mg/dL (7-18)
[2018-10-20] MEDS: AmLODIPine BESYLATE 5 MG TABLET PO SCH (08:31)
[2018-10-20 13:56] VITALS: BP 130/84
[2018-10-20 17:24] LABS: GLUCOMETER DEV NAME(LOC) 3EX.; GLUCOSE,POINT OF CARE 164 MG/DL (70-110)
[2018-10-20 22:05] VITALS: BP 124/86
[2018-10-20] MEDS: PALIPERIDONE 3 MG ER TABLET PO SCH (23:57)
[2018-10-21 05:52] VITALS: BP 158/96
[2018-10-21] MEDS: AmLODIPine BESYLATE 5 MG TABLET PO SCH (08:45)
[2018-10-21 09:44] VITALS: BP 129/72
[2018-10-21 19:00] VITALS: BP 139/88
[2018-10-21] MEDS: PALIPERIDONE 3 MG ER TABLET PO SCH (20:17)
[2018-10-22] MEDS: AmLODIPine BESYLATE 5 MG TABLET PO SCH (09:56)
[2018-10-22 16:30] VITALS: BP 131/77
[2018-10-22] MEDS: PALIPERIDONE 3 MG ER TABLET PO SCH (20:31)
[2018-10-23] MEDS: AmLODIPine BESYLATE 5 MG TABLET PO SCH (08:50)
[2018-10-23 09:26] VITALS: BP 164/87
[2018-10-23 17:01] VITALS: BP 149/94
[2018-10-23] MEDS: PALIPERIDONE 3 MG ER TABLET PO SCH (20:22)
[2018-10-24 02:40] VITALS: BP 135/97
[2018-10-24] MEDS: LORazepam 2 MG TABLET PO PRN (03:49)
[2018-10-24 08:00] VITALS: BP 156/98
[2018-10-24] MEDS: AmLODIPine BESYLATE 5 MG TABLET PO SCH (08:20)
[2018-10-24] MEDS ORDERED: PALI6 PO (15:04)
[2018-10-24] MEDS ORDERED: AMLO-512 PO (15:47)
== END 2018-10-24 17:30 | disposition home or self-care (01) | DRG 885 ==
LOC: EMS 09:08 → 3EX 15:04
PROVIDERS: ADMIT Psychiatry & Neurology Psychiatry; ATTEND Psychiatry & Neurology Psychiatry
DX: F20.0 Paranoid schizophrenia (principal); E87.1 Hypo-osmolality and hyponatremia; D64.9 Anemia, unspecified; I10 Essential (primary) hypertension; J45.909 Unspecified asthma, uncomplicated; F17.210 Nicotine dependence, cigarettes, uncomplicated; F10.20 Alcohol dependence, uncomplicated; F15.10 Other stimulant abuse, uncomplicated; Z59.0 Homelessness; R45.1 Restlessness and agitation; Z23 Encounter for immunization
CPT/HCPCS: 80074; 83036; 83735; 84439; 84443; 87081; 90686; G0378; G0480

== ENCOUNTER 2018-10-30 | Emergency (ER) | payer MEDICARE, OTHER ==
[~2018-10-30] VITALS: Ht 154.9 cm; Wt 50.0 kg
[~2018-10-30] MED LIST changes: -AMLO-511 PO; +AMLO-512 PO; -CLON-570 PO; -PALI234D IM
[2018-10-30 00:29] LABS: GLUCOSE,POINT OF CARE 81 MG/DL (70-110)
[2018-10-30 00:54] LABS: BASOPHILS % (AUTO) 1.2 % (0.0-2.0); EOSINOPHILS % (AUTO) 2.1 % (1.0-6.0); HEMATOCRIT 35.9 % (41-53); LYMPHOCYTES # (AUTO) 1.7 K/uL (1.0-4.8); LYMPHOCYTES % (AUTO) 27.8 % (22.0-44.0); MEAN CORPUSCULAR HEMOGLOBIN 27.1 pg (26.0-34.0); MEAN CORPUSCULAR HGB CONC 33.4 G/dL (31.0-37.0); MEAN CORPUSCULAR VOLUME 81 fL (80-100); MONOCYTES # (AUTO) 0.6 K/uL (0.1-1.0); MONOCYTES % (AUTO) 9.4 % (2.0-9.0); NEUTROPHILS # (AUTO) 3.7 K/uL (1.8-7.7); NEUTROPHILS % (AUTO) 59.5 % (40.0-70.0); PLATELET COUNT (AUTO) 350 K/uL (150-450); RED BLOOD CELL COUNT(AUTO) 4.42 MIL/uL (4.50-5.90); RED CELL DISTRIBUTION WIDTH 16.9 % (11.5-14.5)
[2018-10-30 01:00] LABS: ANION GAP 9 mmol/L (8-16); CALCIUM, TOTAL 8.3 mg/dL (8.8-10.5); CARBON DIOXIDE 29 mmol/L (22-29); CHLORIDE 99 mmol/L (98-107); CREATININE 0.93 mg/dL (0.60-1.30); GLOMERULAR FILTR. RATE CALC > 60 mL/min (>60); GLUCOSE,RANDOM 89 mg/dL (70-110); POTASSIUM 3.3 mmol/L (3.5-5.1); SODIUM SERUM 137 mmol/L (136-145); UREA NITROGEN, BLOOD 12 mg/dL (7-18)
[2018-10-30 01:06] LABS: ALANINE AMINOTRANSFERASE 30 U/L (12-78); ALBUMIN 3.3 g/dL (3.4-5.0); ALKALINE PHOSPHATASE 78 U/L (46-116); ASPARTATE AMINOTRANSFERASE 30 U/L (15-37); BILIRUBIN,TOTAL 0.4 mg/dL (0.1-1.0); TOTAL PROTEIN, SERUM 7.6 g/dL (6.4-8.2)
[2018-10-30] MEDS: POTASSIUM CHLORIDE 20 MEQ ER TABLET PO ONE (01:44)
[2018-10-30 01:50] LABS: AMPHET/METH SCREEN,URINE NEGATIVE (NEGATIVE); BARBITURATE SCREEN, URINE NEGATIVE (NEGATIVE); BENZODIAZEPINES SCREEN,URINE NEGATIVE (NEGATIVE); CANNABINOID SCREEN,URINE NEGATIVE (NEGATIVE); COCAINE SCREEN,URINE NEGATIVE (NEGATIVE); METHADONE SCREEN, URINE NEGATIVE (NEGATIVE); OPIATE SCREEN,URINE NEGATIVE (NEGATIVE)
[2018-10-30 01:51] LABS: PHENCYCLIDINE SCREEN,URINE NEGATIVE (NEGATIVE)
[2018-10-30 03:33] VITALS: BP 156/92
== END 2018-10-30 03:34 | disposition home or self-care (01) ==
LOC: EMS 00:02
DX: R45.851 Suicidal ideations (principal); J45.909 Unspecified asthma, uncomplicated; I10 Essential (primary) hypertension; F20.9 Schizophrenia, unspecified; F17.210 Nicotine dependence, cigarettes, uncomplicated; F19.90 Other psychoactive substance use, unspecified, uncomplicated; Z59.0 Homelessness
CPT/HCPCS: 36415; 80053; 80307; 82962; 85025; 99285; G0480

== ENCOUNTER 2020-10-03 10:26 | Emergency (ER) | payer MEDICARE, OTHER ==
[~2020-10-03] VITALS: Ht 154.9 cm; Wt 72.7 kg
[~2020-10-03 10:26] MED LIST changes: +AMLO-258 PO; -AMLO-512 PO; -PALI6 PO; +PALI6TAB15 PO
[2020-10-03 11:52] VITALS: BP 109/53
== END 2020-10-03 13:03 | disposition home or self-care (01) ==
LOC: EMS 10:38
DX: F20.9 Schizophrenia, unspecified (principal); I10 Essential (primary) hypertension; J45.909 Unspecified asthma, uncomplicated; F17.210 Nicotine dependence, cigarettes, uncomplicated; F15.90 Other stimulant use, unspecified, uncomplicated; Z59.0 Homelessness
CPT/HCPCS: Z7502

== ENCOUNTER 2020-10-03 17:54 | Emergency (ER) | payer MEDICARE, MEDICAID ==
[~2020-10-03] VITALS: Ht 154.9 cm; Wt 63.6 kg
[2020-10-03 19:16] VITALS: BP 135/96
== END 2020-10-03 19:43 | disposition home or self-care (01) ==
LOC: EMS 17:56
DX: F20.9 Schizophrenia, unspecified (principal); I10 Essential (primary) hypertension; F17.210 Nicotine dependence, cigarettes, uncomplicated; J45.909 Unspecified asthma, uncomplicated; F15.90 Other stimulant use, unspecified, uncomplicated; Z59.0 Homelessness
CPT/HCPCS: 99406

== ENCOUNTER 2020-10-04 12:48 | Emergency (ER) | payer MEDICAID, MEDICARE ==
[~2020-10-04] VITALS: Ht 170.2 cm; Wt 68.2 kg
[2020-10-04] MEDS ORDERED: ACETAMINOPHEN 500 MG TABLET PO ONE (14:00)
[2020-10-04 14:05] VITALS: BP 132/94
== END 2020-10-04 14:26 | disposition home or self-care (01) ==
LOC: EMS 12:48
DX: M79.675 Pain in left toe(s) (principal); F20.9 Schizophrenia, unspecified; J45.909 Unspecified asthma, uncomplicated; I10 Essential (primary) hypertension; F17.210 Nicotine dependence, cigarettes, uncomplicated; F19.90 Other psychoactive substance use, unspecified, uncomplicated; Z59.0 Homelessness

== ENCOUNTER 2020-10-04 16:07 | Emergency (ER) | payer MEDICARE, MEDICAID ==
[~2020-10-04] VITALS: Ht 154.9 cm; Wt 63.6 kg
[2020-10-04 17:36] LABS: BASOPHILS % (AUTO) 1.4 % (0.0-2.0); EOSINOPHILS % (AUTO) 2.6 % (1.0-6.0); HEMATOCRIT 25.9 % (41-53); HEMOGLOBIN 8.1 g/dL (13.5-17.5); LYMPHOCYTES # (AUTO) 1.7 K/uL (1.0-4.8); LYMPHOCYTES % (AUTO) 25.5 % (22.0-44.0); MEAN CORPUSCULAR HEMOGLOBIN 22.2 pg (26.0-34.0); MEAN CORPUSCULAR HGB CONC 31.3 G/dL (31.0-37.0); MEAN CORPUSCULAR VOLUME 71 fL (80-100); MONOCYTES # (AUTO) 0.5 K/uL (0.1-1.0); MONOCYTES % (AUTO) 7.9 % (2.0-9.0); NEUTROPHILS # (AUTO) 4.3 K/uL (1.8-7.7); NEUTROPHILS % (AUTO) 62.6 % (40.0-70.0); PLATELET COUNT (AUTO) 488 K/uL (150-450); RED BLOOD CELL COUNT(AUTO) 3.66 MIL/uL (4.50-5.90); RED CELL DISTRIBUTION WIDTH 17.6 % (11.5-14.5)
[2020-10-04 17:54] LABS: ANION GAP 6 mmol/L (8-16); CALCIUM, TOTAL 8.1 mg/dL (8.8-10.5); CARBON DIOXIDE 27 mmol/L (22-29); CHLORIDE 103 mmol/L (98-107); CREATININE 1.04 mg/dL (0.60-1.30); GLOMERULAR FILTR. RATE CALC > 60 mL/min (>60); GLUCOSE,RANDOM 97 mg/dL (70-110); POTASSIUM 4.1 mmol/L (3.5-5.1); SODIUM SERUM 136 mmol/L (136-145); UREA NITROGEN, BLOOD 21 mg/dL (7-18)
[2020-10-04 18:02] LABS: ALANINE AMINOTRANSFERASE 38 U/L (12-78); ALBUMIN 2.6 g/dL (3.4-5.0); ALKALINE PHOSPHATASE 106 U/L (46-116); ASPARTATE AMINOTRANSFERASE 24 U/L (15-37); BILIRUBIN,TOTAL 0.2 mg/dL (0.1-1.0)
[2020-10-04 18:46] LABS: AMPHET/METH SCREEN,URINE NEGATIVE (NEGATIVE); BARBITURATE SCREEN, URINE NEGATIVE (NEGATIVE); BENZODIAZEPINES SCREEN,URINE NEGATIVE (NEGATIVE); CANNABINOID SCREEN,URINE NEGATIVE (NEGATIVE); COCAINE SCREEN,URINE NEGATIVE (NEGATIVE); METHADONE SCREEN, URINE NEGATIVE (NEGATIVE); OPIATE SCREEN,URINE NEGATIVE (NEGATIVE)
[2020-10-04 18:48] LABS: PHENCYCLIDINE SCREEN,URINE NEGATIVE (NEGATIVE)
[2020-10-04 19:19] VITALS: BP 139/85
== END 2020-10-04 20:53 | disposition home or self-care (01) ==
LOC: EMS 16:07
DX: R44.1 Visual hallucinations (principal); D64.9 Anemia, unspecified; J45.909 Unspecified asthma, uncomplicated; I10 Essential (primary) hypertension; F17.210 Nicotine dependence, cigarettes, uncomplicated; F19.90 Other psychoactive substance use, unspecified, uncomplicated
CPT/HCPCS: 36415; 80053; 80307; 85025; 99284; G0480

== ENCOUNTER 2021-02-06 08:51 | Emergency (ER) | payer MEDICARE, MEDICAID ==
[~2021-02-06] VITALS: Ht 172.7 cm; Wt 63.6 kg
[2021-02-06 09:08] VITALS: BP 150/98
== END 2021-02-06 09:40 | disposition home or self-care (01) ==
LOC: EMS 08:51
DX: F20.0 Paranoid schizophrenia (principal); M25.561 Pain in right knee; J45.909 Unspecified asthma, uncomplicated; I10 Essential (primary) hypertension; F17.210 Nicotine dependence, cigarettes, uncomplicated; F19.90 Other psychoactive substance use, unspecified, uncomplicated; Z59.0 Homelessness
CPT/HCPCS: 99283; Z7502

== ENCOUNTER 2021-02-14 03:28 | Emergency (ER) | payer MEDICAID, MEDICARE ==
[~2021-02-14] VITALS: Ht 167.6 cm; Wt 63.6 kg
[2021-02-14] MEDS ORDERED: PERTUSS(ACELL),DIPH,TET VAC/PF 0.5 ML SYRINGE IM. ONE (04:15)
[2021-02-14] MEDS ORDERED: BACITRACIN 0.9 GM PACKET OINTMENT TP ONE (04:15)
[2021-02-14 04:55] VITALS: BP 149/86
== END 2021-02-14 05:16 | disposition home or self-care (01) ==
LOC: EMS 03:30
DX: S90.812A Abrasion, left foot, initial encounter (principal); J45.909 Unspecified asthma, uncomplicated; I10 Essential (primary) hypertension; F20.9 Schizophrenia, unspecified; F17.210 Nicotine dependence, cigarettes, uncomplicated; Z59.0 Homelessness; X58.XXXA Exposure to other specified factors, initial encounter; Y93.01 Activity, walking, marching and hiking; Y92.89 Other specified places as the place of occurrence of the external cause; Y99.8 Other external cause status
CPT/HCPCS: 90471; 90715; 99283

== ENCOUNTER 2021-02-14 09:08 | Emergency (ER) | payer MEDICARE, MEDICAID ==
[~2021-02-14] VITALS: Ht 170.2 cm; Wt 75.0 kg
[2021-02-14 10:46] VITALS: BP 132/80
== END 2021-02-14 11:22 | disposition home or self-care (01) ==
LOC: EMS 09:29
DX: R20.0 Anesthesia of skin (principal)
CPT/HCPCS: 99283

== ENCOUNTER 2021-02-15 02:10 | Emergency (ER) | payer MEDICAID, MEDICARE ==
[~2021-02-15] VITALS: Ht 160 cm; Wt 65.9 kg
[2021-02-15 02:13] VITALS: BP 142/98
[2021-02-15] MEDS ORDERED: ACETAMINOPHEN 500 MG TABLET PO ONE (02:45)
[2021-02-15] MEDS ORDERED: LIDOCAINE 5% TRANSDERMAL PATCH TD ONE (02:45)
[2021-02-15] MEDS ORDERED: IBUPROFEN 600 MG TABLET PO ONE (02:45)
== END 2021-02-15 02:46 | disposition home or self-care (01) ==
LOC: EMS 02:18
DX: M54.6 Pain in thoracic spine (principal); F31.9 Bipolar disorder, unspecified; F20.9 Schizophrenia, unspecified; I10 Essential (primary) hypertension; F17.210 Nicotine dependence, cigarettes, uncomplicated; F12.90 Cannabis use, unspecified, uncomplicated; Z79.899 Other long term (current) drug therapy
CPT/HCPCS: 99284; Z7502; Z7610

== ENCOUNTER 2021-02-15 15:46 | Emergency (ER) | payer MEDICAID ==
[~2021-02-15] VITALS: Ht 167.6 cm; Wt 68.2 kg
[2021-02-15] MEDS ORDERED: POVIDONE-IODINE 10% 15 ML SOLUTION UD ONE (16:26)
[2021-02-15 19:33] VITALS: BP 134/87
== END 2021-02-15 19:54 | disposition home or self-care (01) ==
LOC: EMS 15:46
DX: F20.0 Paranoid schizophrenia (principal); F17.210 Nicotine dependence, cigarettes, uncomplicated; F12.90 Cannabis use, unspecified, uncomplicated
CPT/HCPCS: 99281; Z7502

== ENCOUNTER 2021-02-16 00:02 | Emergency (ER) | payer MEDICAID ==
[~2021-02-16] VITALS: Ht 165.1 cm; Wt 54.5 kg
[2021-02-16 00:15] VITALS: BP 147/84
== END 2021-02-16 01:15 | disposition home or self-care (01) ==
LOC: EMS 00:06
DX: F20.9 Schizophrenia, unspecified (principal); F17.210 Nicotine dependence, cigarettes, uncomplicated; F12.90 Cannabis use, unspecified, uncomplicated
CPT/HCPCS: 99283; Z7502

== ENCOUNTER 2021-02-21 08:44 | Emergency (ER) | payer MEDICARE, MEDICAID ==
[~2021-02-21] VITALS: Ht 170.2 cm; Wt 61.2 kg
[2021-02-21 09:40] LABS: BASOPHILS % (AUTO) 1.4 % (0.0-2.0); EOSINOPHILS % (AUTO) 6.8 % (1.0-6.0); HEMATOCRIT 31.6 % (41-53); HEMOGLOBIN 10.1 g/dL (13.5-17.5); LYMPHOCYTES # (AUTO) 1.6 K/uL (1.0-4.8); LYMPHOCYTES % (AUTO) 29.6 % (22.0-44.0); MEAN CORPUSCULAR HEMOGLOBIN 23.7 pg (26.0-34.0); MEAN CORPUSCULAR HGB CONC 31.8 G/dL (31.0-37.0); MEAN CORPUSCULAR VOLUME 75 fL (80-100); MONOCYTES # (AUTO) 0.5 K/uL (0.1-1.0); MONOCYTES % (AUTO) 8.3 % (2.0-9.0); NEUTROPHILS % (AUTO) 53.9 % (40.0-70.0); PLATELET COUNT (AUTO) 437 K/uL (150-450); RED BLOOD CELL COUNT(AUTO) 4.24 MIL/uL (4.50-5.90); RED CELL DISTRIBUTION WIDTH 17.9 % (11.5-14.5)
[2021-02-21 09:50] LABS: ANION GAP 5 mmol/L (8-16); CALCIUM, TOTAL 8.6 mg/dL (8.8-10.5); CARBON DIOXIDE 30 mmol/L (22-29); CHLORIDE 101 mmol/L (98-107); CREATININE 0.93 mg/dL (0.60-1.30); GLOMERULAR FILTR. RATE CALC > 60 mL/min (>60); GLUCOSE,RANDOM 95 mg/dL (70-110); POTASSIUM 4.1 mmol/L (3.5-5.1); SODIUM SERUM 136 mmol/L (136-145); UREA NITROGEN, BLOOD 16 mg/dL (7-18)
[2021-02-21 09:56] LABS: ALANINE AMINOTRANSFERASE 20 U/L (12-78); ALBUMIN 3.3 g/dL (3.4-5.0); ALKALINE PHOSPHATASE 90 U/L (46-116); ASPARTATE AMINOTRANSFERASE 12 U/L (15-37); BILIRUBIN,TOTAL 0.3 mg/dL (0.1-1.0); TOTAL PROTEIN, SERUM 7.5 g/dL (6.4-8.2)
[2021-02-21 10:04] LABS: B-TYPE NATRIURETIC PEPTIDE 967 pg/mL (0-100)
[2021-02-21 10:07] LABS: AMPHET/METH SCREEN,URINE NEGATIVE (NEGATIVE); BARBITURATE SCREEN, URINE NEGATIVE (NEGATIVE); BENZODIAZEPINES SCREEN,URINE NEGATIVE (NEGATIVE); CANNABINOID SCREEN,URINE NEGATIVE (NEGATIVE); COCAINE SCREEN,URINE NEGATIVE (NEGATIVE); METHADONE SCREEN, URINE NEGATIVE (NEGATIVE); OPIATE SCREEN,URINE NEGATIVE (NEGATIVE)
[2021-02-21 10:09] LABS: PHENCYCLIDINE SCREEN,URINE NEGATIVE (NEGATIVE)
[2021-02-21 10:25] VITALS: BP 138/96
== END 2021-02-21 10:30 | disposition home or self-care (01) ==
LOC: EMS 08:44
DX: R06.00 Dyspnea, unspecified (principal); F20.9 Schizophrenia, unspecified; F31.9 Bipolar disorder, unspecified; F17.210 Nicotine dependence, cigarettes, uncomplicated; F12.90 Cannabis use, unspecified, uncomplicated; Z59.0 Homelessness
CPT/HCPCS: 71045; 80053; 83880; 84484; 85025; 93005; 99285; 36415-L1; 36415-TC

== ENCOUNTER 2021-02-21 21:01 | Emergency (ER) | payer MEDICAID, MEDICARE ==
[~2021-02-21] VITALS: Ht 154.9 cm; Wt 50.0 kg
[2021-02-21 21:15] VITALS: BP 129/84
[2021-02-21] MEDS ORDERED: ACETAMINOPHEN 500 MG TABLET PO ONE (21:15)
== END 2021-02-21 21:27 | disposition home or self-care (01) ==
LOC: EMS 21:27
DX: M25.561 Pain in right knee (principal); M79.631 Pain in right forearm; M79.632 Pain in left forearm; F20.9 Schizophrenia, unspecified; F31.9 Bipolar disorder, unspecified; I10 Essential (primary) hypertension; F17.210 Nicotine dependence, cigarettes, uncomplicated; F12.90 Cannabis use, unspecified, uncomplicated; Z59.0 Homelessness
CPT/HCPCS: 99282; Z7502; Z7610

== ENCOUNTER 2021-02-22 14:31 | Emergency (ER) | payer MEDICARE, MEDICAID ==
[~2021-02-22] VITALS: Ht 167.6 cm; Wt 65.9 kg
[2021-02-22 14:51] VITALS: BP 146/91
== END 2021-02-22 16:15 | disposition left against medical advice (07) ==
LOC: EMS 14:38
DX: M25.559 Pain in unspecified hip (principal); Z53.21 Procedure and treatment not carried out due to patient leaving prior to being seen by health care provider

== ENCOUNTER 2021-02-24 10:39 | Emergency (ER) | payer MEDICARE, MEDICAID ==
[~2021-02-24] VITALS: Ht 154.9 cm; Wt 50.0 kg
[2021-02-24 10:42] VITALS: BP 143/95
== END 2021-02-24 11:49 | disposition home or self-care (01) ==
LOC: EMS 11:02
DX: B86 Scabies (principal); F31.9 Bipolar disorder, unspecified; I10 Essential (primary) hypertension; F20.9 Schizophrenia, unspecified; F17.210 Nicotine dependence, cigarettes, uncomplicated; F12.90 Cannabis use, unspecified, uncomplicated; Z59.0 Homelessness
CPT/HCPCS: 99282; Z7502

== ENCOUNTER 2021-03-14 05:31 | Emergency (ER) | payer MEDICARE, MEDICAID ==
[~2021-03-14] VITALS: Ht 165.1 cm; Wt 56.8 kg
[2021-03-14 05:40] VITALS: BP 114/76
== END 2021-03-14 06:14 | disposition home or self-care (01) ==
LOC: EMS 05:33
DX: Z59.0 Homelessness (principal); F31.9 Bipolar disorder, unspecified; I10 Essential (primary) hypertension; F20.9 Schizophrenia, unspecified; F17.210 Nicotine dependence, cigarettes, uncomplicated; F12.90 Cannabis use, unspecified, uncomplicated
CPT/HCPCS: 99283

== ENCOUNTER 2021-03-16 22:46 | Emergency (ER) | payer MEDICAID, MEDICARE ==
[~2021-03-16] VITALS: Ht 152.4 cm; Wt 54.5 kg
[2021-03-16 23:13] VITALS: BP 137/95
== END 2021-03-17 01:04 | disposition left against medical advice (07) ==
LOC: EMS 22:46
DX: J00 Acute nasopharyngitis [common cold] (principal); Z53.21 Procedure and treatment not carried out due to patient leaving prior to being seen by health care provider

== ENCOUNTER 2021-03-18 10:13 | Emergency (ER) | payer MEDICAID ==
[~2021-03-18] VITALS: Ht 152.4 cm; Wt 63.6 kg
[2021-03-18] MEDS ORDERED: ACETAMINOPHEN 500 MG TABLET PO ONE (10:45)
[2021-03-18 12:15] VITALS: BP 126/79
== END 2021-03-18 12:41 | disposition home or self-care (01) ==
LOC: EMS 10:13
DX: M25.561 Pain in right knee (principal); F31.9 Bipolar disorder, unspecified; I10 Essential (primary) hypertension; F20.9 Schizophrenia, unspecified; F17.210 Nicotine dependence, cigarettes, uncomplicated; F12.90 Cannabis use, unspecified, uncomplicated; Z59.0 Homelessness
CPT/HCPCS: 99282; Z7502; Z7610

== ENCOUNTER 2021-03-22 10:21 | Emergency (ER) | payer MEDICARE, MEDICAID ==
[~2021-03-22] VITALS: Ht 152.4 cm; Wt 45.5 kg
[2021-03-22 12:02] VITALS: BP 148/99
== END 2021-03-22 13:46 | disposition left against medical advice (07) ==
LOC: EMS 10:26
DX: M25.561 Pain in right knee (principal); F31.9 Bipolar disorder, unspecified; I10 Essential (primary) hypertension; F20.9 Schizophrenia, unspecified; F17.210 Nicotine dependence, cigarettes, uncomplicated; F12.90 Cannabis use, unspecified, uncomplicated; Z59.0 Homelessness
CPT/HCPCS: 99281; 99283

== ENCOUNTER 2021-03-22 19:28 | Emergency (ER) | payer MEDICAID, MEDICARE ==
[~2021-03-22] VITALS: Ht 152.4 cm; Wt 75.0 kg
[2021-03-22 22:00] VITALS: BP 128/78
== END 2021-03-22 23:09 | disposition home or self-care (01) ==
LOC: EMS 19:30
DX: M25.561 Pain in right knee (principal); Z59.0 Homelessness; I10 Essential (primary) hypertension; F31.9 Bipolar disorder, unspecified; F20.9 Schizophrenia, unspecified; F12.90 Cannabis use, unspecified, uncomplicated; F17.210 Nicotine dependence, cigarettes, uncomplicated
CPT/HCPCS: 99281; Z7502

== ENCOUNTER 2021-03-23 12:07 | Emergency (ER) | payer MEDICAID ==
[~2021-03-23] VITALS: Ht 152.4 cm; Wt 50.0 kg
[2021-03-23 12:17] VITALS: BP 127/84
== END 2021-03-23 14:39 | disposition home or self-care (01) ==
LOC: EMS 12:16
DX: M25.561 Pain in right knee (principal); F12.90 Cannabis use, unspecified, uncomplicated; F17.210 Nicotine dependence, cigarettes, uncomplicated; Z59.0 Homelessness
CPT/HCPCS: 99281; Z7502

== ENCOUNTER 2021-03-23 19:48 | Emergency (ER) | payer MEDICAID ==
[~2021-03-23] VITALS: Ht 152.4 cm; Wt 59.1 kg
[2021-03-23 20:16] VITALS: BP 133/86
[2021-03-23] MEDS ORDERED: ACETAMINOPHEN 325 MG TABLET PO ONE (20:30)
== END 2021-03-23 21:30 | disposition home or self-care (01) ==
LOC: EMS 19:51
DX: M25.561 Pain in right knee (principal); M25.562 Pain in left knee; F31.9 Bipolar disorder, unspecified; F20.9 Schizophrenia, unspecified; I10 Essential (primary) hypertension; F17.210 Nicotine dependence, cigarettes, uncomplicated; F12.90 Cannabis use, unspecified, uncomplicated; Z59.0 Homelessness
CPT/HCPCS: 99282; Z7502; Z7610

== ENCOUNTER 2021-03-24 17:38 | Emergency (ER) | payer MEDICARE, MEDICAID ==
[~2021-03-24] VITALS: Ht 152.4 cm; Wt 65.9 kg
[2021-03-24 18:09] VITALS: BP 152/89
== END 2021-03-24 18:25 | disposition home or self-care (01) ==
LOC: EMS 17:38
DX: M25.561 Pain in right knee (principal); I10 Essential (primary) hypertension; F20.9 Schizophrenia, unspecified; F31.9 Bipolar disorder, unspecified
CPT/HCPCS: 99282; Z7502

== ENCOUNTER 2021-03-25 12:54 | Emergency (ER) | payer MEDICARE, MEDICAID ==
[~2021-03-25] VITALS: Ht 167.6 cm; Wt 70.0 kg
[2021-03-25] MEDS ORDERED: ACETAMINOPHEN 325 MG TABLET PO ONE (16:00)
[2021-03-25 16:42] VITALS: BP 148/88
== END 2021-03-25 16:46 | disposition home or self-care (01) ==
LOC: EMS 13:11
DX: M79.661 Pain in right lower leg (principal); I10 Essential (primary) hypertension; F20.9 Schizophrenia, unspecified; F17.210 Nicotine dependence, cigarettes, uncomplicated; F12.90 Cannabis use, unspecified, uncomplicated; Z59.0 Homelessness
CPT/HCPCS: 99283

== ENCOUNTER 2021-03-31 23:58 | Emergency (ER) | payer MEDICARE, MEDICAID ==
[~2021-03-31] VITALS: Ht 167.6 cm; Wt 70.0 kg
[2021-04-01 00:13] LABS: GLUCOSE,POINT OF CARE 145 MG/DL (70-110)
[2021-04-01 01:00] VITALS: BP 147/88
== END 2021-04-01 01:40 | disposition home or self-care (01) ==
LOC: EMS 23:59
DX: M54.9 Dorsalgia, unspecified (principal); M79.606 Pain in leg, unspecified; E11.9 Type 2 diabetes mellitus without complications; I10 Essential (primary) hypertension; F20.9 Schizophrenia, unspecified; F31.9 Bipolar disorder, unspecified; F17.210 Nicotine dependence, cigarettes, uncomplicated; Z59.0 Homelessness
CPT/HCPCS: 82962; 99283

== ENCOUNTER 2021-04-02 23:06 | Emergency (ER) | payer MEDICAID, MEDICARE ==
[~2021-04-02] VITALS: Ht 162.6 cm; Wt 50.0 kg
[2021-04-02 23:14] VITALS: BP 148/95
== END 2021-04-02 23:55 | disposition home or self-care (01) ==
LOC: EMS 23:10
DX: M25.511 Pain in right shoulder (principal); M25.561 Pain in right knee; E11.9 Type 2 diabetes mellitus without complications; I10 Essential (primary) hypertension; F31.9 Bipolar disorder, unspecified; F20.9 Schizophrenia, unspecified; F17.210 Nicotine dependence, cigarettes, uncomplicated; F12.90 Cannabis use, unspecified, uncomplicated; Z59.0 Homelessness
CPT/HCPCS: 99283; Z7502

== ENCOUNTER 2021-04-05 17:30 | Emergency (ER) | payer MEDICAID ==
[~2021-04-05] VITALS: Ht 157.5 cm; Wt 68.2 kg
[2021-04-05 17:37] VITALS: BP 152/93
== END 2021-04-05 20:41 | disposition left against medical advice (07) ==
LOC: EMS 17:41
DX: M25.569 Pain in unspecified knee (principal); Z53.21 Procedure and treatment not carried out due to patient leaving prior to being seen by health care provider

== ENCOUNTER 2021-04-10 16:27 | Emergency (ER) | payer MEDICARE, MEDICAID ==
[~2021-04-10] VITALS: Ht 175.3 cm; Wt 68.2 kg
[2021-04-10] MEDS ORDERED: ACETAMINOPHEN 325 MG TABLET PO ONE (18:15)
[2021-04-10 18:30] VITALS: BP 135/83
== END 2021-04-10 19:10 | disposition home or self-care (01) ==
LOC: EMS 16:27
DX: L55.9 Sunburn, unspecified (principal); F31.9 Bipolar disorder, unspecified; F20.9 Schizophrenia, unspecified; E11.9 Type 2 diabetes mellitus without complications; I10 Essential (primary) hypertension; F17.210 Nicotine dependence, cigarettes, uncomplicated; F12.90 Cannabis use, unspecified, uncomplicated; Z59.0 Homelessness
CPT/HCPCS: 99282; Z7502; Z7610

== ENCOUNTER 2021-04-12 10:28 | Emergency (ER) | payer MEDICAID, MEDICARE ==
[~2021-04-12] VITALS: Ht 165.1 cm; Wt 54.5 kg
[2021-04-12 10:40] VITALS: BP 154/103
[2021-04-12] MEDS ORDERED: ACETAMINOPHEN 500 MG TABLET PO ONE (10:45)
== END 2021-04-12 11:17 | disposition home or self-care (01) ==
LOC: EMS 10:34
DX: S90.822A Blister (nonthermal), left foot, initial encounter (principal); M79.661 Pain in right lower leg; E11.9 Type 2 diabetes mellitus without complications; I10 Essential (primary) hypertension; F17.210 Nicotine dependence, cigarettes, uncomplicated; Z59.0 Homelessness; F20.9 Schizophrenia, unspecified; X58.XXXA Exposure to other specified factors, initial encounter; Y93.89 Activity, other specified; Y92.89 Other specified places as the place of occurrence of the external cause; Y99.8 Other external cause status
CPT/HCPCS: 96361; 96374; 96375; 99283

== ENCOUNTER 2021-06-24 18:32 | Emergency (ER) | payer MEDICAID ==
[~2021-06-24] VITALS: Ht 165.1 cm; Wt 54.5 kg
[2021-06-24 18:40] VITALS: BP 143/79
== END 2021-06-24 19:14 | disposition left against medical advice (07) ==
LOC: EMS 18:38
DX: M79.606 Pain in leg, unspecified (principal); Z53.21 Procedure and treatment not carried out due to patient leaving prior to being seen by health care provider